=== PATIENT | female | born 1990 | race Two or more races ===

== ENCOUNTER 2018-04-28 12:19 | Outpatient (CLI) | payer MEDICAID ==
[~2018-04-28] VITALS: Ht 167.6 cm; Wt 136.8 kg
[2018-04-28] MEDS ORDERED: PREN1TAB60 PO (13:05)
[2018-04-28 13:07] VITALS: BP 121/80
[2018-04-28 13:29] LABS: BASOPHILS # (AUTO) 0.02 x10^3/uL (0-0.1); BASOPHILS % (AUTO) 0 % (0-1); EOSINOPHILS # (AUTO) 0.05 x10^3/uL (0-0.4); EOSINOPHILS % (AUTO) 1 % (1-7); LYMPHOCYTES % (AUTO) 15 % (22-44); MD NO; MEAN CORPUSCULAR HGB CONC 33.8 g/dL (32.4-35.8); MEAN CORPUSCULAR VOLUME 88.7 fL (80-100); MEAN PLATELET VOLUME 10.2 fL (7.4-10.4); MONOCYTES # (AUTO) 0.64 x10^3/uL (0.2-0.8); MONOCYTES % (AUTO) 8 % (2-9); NEUTROPHILS # (AUTO) 5.95 x10^3/uL (1.8-6.8); NEUTROPHILS % (AUTO) 76 % (42-75); PLATELET COUNT 231 x10^3/uL (130-400); RED BLOOD COUNT 3.34 x10^6/uL (3.82-5.3); RED CELL DISTRIBUTION WIDTH 13.7 % (9.6-15.2)
[2018-04-28 13:40] LABS: ANION GAP 7 mmol/L (5-15); CALCIUM 8.3 mg/dL (8.5-10.1); CHLORIDE 109 mmol/L (98-107); CREATININE 0.78 mg/dL (0.55-1.02)
[2018-04-28 13:41] LABS: ALANINE AMINOTRANSFERASE 14 U/L (12-78); ALBUMIN 2.4 g/dL (3.4-5.0)
[2018-04-28 13:42] LABS: MICROSCOPIC INDICATED
[2018-04-28 13:43] LABS: ALKALINE PHOSPHATASE 174 U/L (45-117); BILIRUBIN,TOTAL 0.3 mg/dL (0.2-1.0); TOTAL PROTEIN 6.8 g/dL (6.4-8.2)
== END 2018-04-28 14:15 | disposition home or self-care (01) ==
LOC: LDOP 12:19
PROVIDERS: ATTEND Student in an Organized Health Care Education/Training Program
DX: O26.893 Other specified pregnancy related conditions, third trimester (principal); Z3A.37 37 weeks gestation of pregnancy
CPT/HCPCS: 36415; 59025; 80053; 81001; 82570; 84156; 84550; 85025; 87086; 87186; 99201; G0463

== ENCOUNTER 2018-05-08 10:38 | Inpatient (IN) | payer MEDICAID ==
[~2018-05-08] VITALS: Ht 167.6 cm; Wt 135.4 kg
[~2018-05-08 10:38] MED LIST: PREN1TAB60 PO
[2018-05-08 11:00] VITALS: BP 147/78
[2018-05-08] MEDS ORDERED: LACTATED RINGERS 1,000 ML IV SCH (13:02)
[2018-05-08] MEDS ORDERED: OXYTOCIN 30U/ 0.9% NaCL 500ML 500 ML IV PRN (13:02)
[2018-05-08] MEDS ORDERED: OXYTOCIN 30U/ 0.9% NaCL 500ML 500 ML IV ONE (13:02)
[2018-05-08] MEDS ORDERED: D5%-LACTATED RINGERS 1,000 ML IV SCH (13:02)
[2018-05-08] MEDS ORDERED: PENICILLIN GK 5,000,000 UNITS in DEXTROSE 5% 100 ML IVPB ONE (13:30)
[2018-05-08] MEDS ORDERED: ONDANSETRON 2MG/ML, 2ML IVPush PRN (13:30)
[2018-05-08] MEDS ORDERED: CALCIUM CARBONATE 500 MG TAB.CHEW PO PRN (13:30)
[2018-05-08] MEDS ORDERED: FENTANYL PF 100 MCG/2ML IVPush PRN (13:30)
[2018-05-08] MEDS ORDERED: FENTANYL PF 100 MCG/2ML IV PRN (13:30)
[2018-05-08 13:35] LABS: BASOPHILS # (AUTO) 0.03 x10^3/uL (0-0.1); BASOPHILS % (AUTO) 0 % (0-1); EOSINOPHILS # (AUTO) 0.11 x10^3/uL (0-0.4); EOSINOPHILS % (AUTO) 1 % (1-7); LYMPHOCYTES # (AUTO) 1.25 x10^3/uL (1-3.4); LYMPHOCYTES % (AUTO) 14 % (22-44); MD NO; MEAN CORPUSCULAR HEMOGLOBIN 28.6 pg (27.0-34.8); MEAN CORPUSCULAR HGB CONC 32.6 g/dL (32.4-35.8); MEAN CORPUSCULAR VOLUME 87.7 fL (80-100); MEAN PLATELET VOLUME 10.4 fL (7.4-10.4); MONOCYTES # (AUTO) 0.54 x10^3/uL (0.2-0.8); MONOCYTES % (AUTO) 6 % (2-9); NEUTROPHILS # (AUTO) 6.78 x10^3/uL (1.8-6.8); NEUTROPHILS % (AUTO) 78 % (42-75); PLATELET COUNT 215 x10^3/uL (130-400); RED BLOOD COUNT 3.78 x10^6/uL (3.82-5.3); RED CELL DISTRIBUTION WIDTH 14.1 % (9.6-15.2)
[2018-05-08] MEDS ORDERED: NEWBORN KIT ONE (13:39)
[2018-05-08] MEDS ORDERED: OXYTOCIN 30U/ 0.9% NaCL 500ML 500 ML ONE (13:39)
[2018-05-08] MEDS ORDERED: LIDOCAINE/PF 1%, 30ML ONE (13:39)
[2018-05-08] MEDS ORDERED: MISOPROSTOL 200 MCG TABLET ONE (13:39)
[2018-05-08] MEDS: PENICILLIN GK 2,500,000 UNITS in DEXTROSE 5% 100 ML IVPB SCH ×2 (17:41→21:20)
[2018-05-08 18:40] LABS: MICROSCOPIC INDICATED
[2018-05-08 18:49] LABS: CREATININE,URINE RANDOM 72.7 mg/dL
[2018-05-08 18:50] LABS: ALANINE AMINOTRANSFERASE 13 U/L (12-78); ALBUMIN 2.4 g/dL (3.4-5.0); ANION GAP 10 mmol/L (5-15); CALCIUM 8.2 mg/dL (8.5-10.1); CHLORIDE 107 mmol/L (98-107); CREATININE 0.64 mg/dL (0.55-1.02)
[2018-05-08 18:53] LABS: ALKALINE PHOSPHATASE 191 U/L (45-117); BILIRUBIN,TOTAL 0.3 mg/dL (0.2-1.0); TOTAL PROTEIN 6.7 g/dL (6.4-8.2)
[2018-05-08 18:55] LABS: BILIRUBIN, DIRECT < 0.1 mg/dL (0.1-0.2)
[2018-05-08] MEDS ORDERED: FENTANYL/BUPIV./NS/PF 250 ML EPIDCONT SCH (20:44)
[2018-05-08] MEDS ORDERED: FENTANYL PF 500 MCG, BUPIVACAINE/PF 0.5%, 30ML 62.5 ML in SODIUM CHLORIDE 0.9% 177.5 ML EPIDCONT SCH (21:00)
[2018-05-08] MEDS ORDERED: FENTANYL PF 100 MCG/2ML ONE (21:18)
[2018-05-09] MEDS: PENICILLIN GK 2,500,000 UNITS in DEXTROSE 5% 100 ML IVPB SCH (01:31)
[2018-05-09] MEDS: OXYTOCIN 30U/ 0.9% NaCL 500ML 500 ML IV SCH ×2 (05:29→15:29)
[2018-05-09] MEDS ORDERED: OXYcodone/APAP 5/325MG TABLET PO PRN (05:30)
[2018-05-09] MEDS ORDERED: CARBOPROST TROMETHAMINE 250 MCG/ML, 1ML IM PRN (05:30)
[2018-05-09] MEDS ORDERED: ACETAMINOPHEN 325 MG TABLET PO PRN (05:30)
[2018-05-09] MEDS ORDERED: ONDANSETRON 2MG/ML, 2ML IV PRN (05:30)
[2018-05-09] MEDS ORDERED: BISACODYL 10 MG SUPP PR PRN (05:30)
[2018-05-09] MEDS ORDERED: GLYCERIN ADULT SUPP PR PRN (05:30)
[2018-05-09] MEDS ORDERED: OXYcodone IR 5MG TABLET PO PRN (05:30)
[2018-05-09] MEDS ORDERED: MISOPROSTOL 200 MCG TABLET PR PRN (05:30)
[2018-05-09] MEDS ORDERED: OXYTOCIN 30U/ 0.9% NaCL 500ML 500 ML ONE (05:31)
[2018-05-09] MEDS ORDERED: IBUPROFEN 600 MG TABLET ONE (08:03)
[2018-05-09] MEDS: IBUPROFEN 600 MG TABLET PO PRN ×2 (08:09→14:41)
[2018-05-09 09:23] VITALS: BP 129/79
[2018-05-09 12:30] VITALS: BP 129/81
[2018-05-09 13:28] LABS: BASOPHILS # (AUTO) 0.01 x10^3/uL (0-0.1); BASOPHILS % (AUTO) 0 % (0-1); EOSINOPHILS # (AUTO) 0.04 x10^3/uL (0-0.4); EOSINOPHILS % (AUTO) 0 % (1-7); LYMPHOCYTES # (AUTO) 1.21 x10^3/uL (1-3.4); LYMPHOCYTES % (AUTO) 11 % (22-44); MD NO; MEAN CORPUSCULAR HEMOGLOBIN 29.5 pg (27.0-34.8); MEAN CORPUSCULAR HGB CONC 33.3 g/dL (32.4-35.8); MEAN CORPUSCULAR VOLUME 88.5 fL (80-100); MONOCYTES # (AUTO) 0.94 x10^3/uL (0.2-0.8); MONOCYTES % (AUTO) 8 % (2-9); NEUTROPHILS # (AUTO) 9.31 x10^3/uL (1.8-6.8); NEUTROPHILS % (AUTO) 81 % (42-75); PLATELET COUNT 192 x10^3/uL (130-400); RED BLOOD COUNT 3.05 x10^6/uL (3.82-5.3)
[2018-05-09] MEDS: PRENATAL VIT/IRON/FA 1 EACH TABLET PO SCH (14:40)
[2018-05-09] MEDS: DOCUSATE 100 MG CAPSULE PO PRN (14:41)
[2018-05-09 17:50] VITALS: BP 121/79
[2018-05-09 19:45] VITALS: BP 139/95
[2018-05-10 00:15] VITALS: BP 111/66
[2018-05-10] MEDS: IBUPROFEN 600 MG TABLET PO PRN ×2 (00:24→20:06)
[2018-05-10] MEDS: OXYTOCIN 30U/ 0.9% NaCL 500ML 500 ML IV SCH ×2 (01:29→11:29)
[2018-05-10 05:30] VITALS: BP 121/83
[2018-05-10 08:30] VITALS: BP 111/68
[2018-05-10] MEDS: FERROUS SULFATE 325 MG TABLET PO SCH (09:18)
[2018-05-10] MEDS: DOCUSATE 100 MG CAPSULE PO PRN ×2 (09:18→20:06)
[2018-05-10] MEDS: PRENATAL VIT/IRON/FA 1 EACH TABLET PO SCH (09:20)
[2018-05-10 19:50] VITALS: BP 126/83
[2018-05-11] MEDS ORDERED: IBUP-1222 PO (02:00)
[2018-05-11] MEDS ORDERED: FERR325T5 PO (02:03)
[2018-05-11 08:00] VITALS: BP 122/84
[2018-05-11] MEDS: FERROUS SULFATE 325 MG TABLET PO SCH (08:00)
[2018-05-11] MEDS: PRENATAL VIT/IRON/FA 1 EACH TABLET PO SCH (09:00)
== END 2018-05-11 12:17 | disposition home or self-care (01) | DRG 807 ==
LOC: LDOP 10:38 → LDIP 12:56 → 2NW 05-09 09:30
PROVIDERS: ADMIT Student in an Organized Health Care Education/Training Program; ATTEND Student in an Organized Health Care Education/Training Program
PROC: 3E033VJ Introduction of Other Hormone into Peripheral Vein, Percutaneous Approach (ICD-10-PCS; 2018-05-08)
PROC: 10E0XZZ Delivery of Products of Conception, External Approach (ICD-10-PCS; principal; 2018-05-09)
PROC: 0KQM0ZZ Repair Perineum Muscle, Open Approach (ICD-10-PCS; 2018-05-09)
PROC: 3E0R3BZ Introduction of Anesthetic Agent into Spinal Canal, Percutaneous Approach (ICD-10-PCS; 2018-05-09)
PROC: 00HU33Z Insertion of Infusion Device into Spinal Canal, Percutaneous Approach (ICD-10-PCS; 2018-05-09)
DX: O77.0 Labor and delivery complicated by meconium in amniotic fluid (principal); Z37.0 Single live birth; O70.1 Second degree perineal laceration during delivery; O99.824 Streptococcus B carrier state complicating childbirth; Z3A.39 39 weeks gestation of pregnancy; Z80.3 Family history of malignant neoplasm of breast
CPT/HCPCS: 36415; 80053; 81001; 82248; 82570; 84156; 84550; 85025; 86850; 86900; 87077; 87086; 87186; G0378; J2540; J3010; J3490; J2590; J7050; J7120